=== PATIENT | male | born 1965 | race Caucasian/White ===

== ENCOUNTER 2017-01-30 01:04 | Emergency (ER) | payer SELFPAY ==
[~2017-01-30] VITALS: Ht 182.9 cm; Wt 100.0 kg
[2017-01-30 01:07] VITALS: Ht 182.9 cm; Wt 100.0 kg
[2017-01-30] MEDS ORDERED: IPRATROPIUM (NEB) 0.5 MG/2.5 ML AMP INH STA (01:49)
[2017-01-30] MEDS ORDERED: METHYLPREDNISOLONE 125 MG INJ IV STA (01:49)
[2017-01-30] MEDS ORDERED: ALBUTEROL 0.5% (NEB) 2.5 MG/0.5 ML AMP INH STA (01:49)
--- NOTE | 2017-01-30 01:49 | ERD ---
ER Documentation Chief Complaint Date/Time DATE: 01/30/17 TIME: 01:47 Chief Complaint sob x 90 min, ran out of inhaler, initial sats low 90's, given HHN, improve HPI This 51-year-old male patient brought in by ambulance for evaluation of asthma exacerbation, patient reports ran out of albuterol 2 days ago, has felt congestion, smokes 10 cigarettes a day. ROS All systems reviewed and are negative except as per history of present illness. Allergies Allergies: Coded Allergies: Penicillins (Verified Allergy, Unknown, 01/30/17) PMhx/Soc History of Surgery: No Anesthesia Reaction: No Hx Neurological Disorder: No Hx Respiratory Disorders: Yes (ASTHMA) Hx Cardiac Disorders: No Hx Psychiatric Problems: No Hx Miscellaneous Medical Probl: No Hx Alcohol Use: No Hx Substance Use: No Hx Tobacco Use: Yes Smoking Status: Current every day smoker Physical Exam Vitals Vital Signs Date Time Temp Pulse Resp B/P Pulse Ox O2 Delivery O2 Flow Rate FiO2 01/30/17 02:17 76 22 97 21 01/30/17 01:07 98.5 99 20 145/96 95 Vitals stable, reviewed, patient satting 95% on room air. Physical Exam Const: Well-nourished well-appearing no acute distress Head: Atraumatic Eyes: Normal Conjunctiva ENT: Neck: Resp: Coarse rhonchi poor air movement Cardio: Regular rate and rhythm, no murmurs Abd: Skin: Back: Ext: Neur: Awake and alert Psych: Normal Mood and Affect Results 24 hrs Current Medications Medications (Trade) Dose Ordered Sig/Kathy Route PRN Reason Start Time Stop Time Status Last Admin Dose Admin Albuterol (Proventil 0.5% (Neb)) 5 mg ONCE STAT INH 01/30/17 01:49 01/30/17 01:58 DC 01/30/17 02:16 Ipratropium [place] (Atrovent 0.02% (Neb)) 0.5 mg ONCE STAT INH 01/30/17 01:49 01/30/17 01:58 DC 01/30/17 02:16 Methylprednisolone Sodium Succinate 125 mg 125 mg ONCE STAT IV 01/30/17 01:49 01/30/17 01:58 DC 01/30/17 02:12 Sodium Chloride (NS) 1,000 ml @ 1,000 mls/hr Q1H ONCE IV 01/30/17 02:00 01/30/17 02:59 DC 01/30/17 02:12 Azithromycin (Zithromax) 500 mg ONCE ONCE PO 01/30/17 04:00 01/30/17 04:01 01/30/17 03:57 Procedures/MDM PROCEDURE: XR Chest. CLINICAL INDICATION: Shortness of breath. TECHNIQUE: PA and lateral chest x-ray. COMPARISON: None. FINDINGS: The cardiomediastinal silhouette is unremarkable. There is no congestive heart failure. There is patchy parenchymal infiltrate in the periphery of the right lung base on the frontal view only, suspicious for an infiltrate. There is no pleural effusion. There is no pneumothorax lower cervical anterior fusion plate is present.. IMPRESSION: Suspected patchy right basilar infiltrate, not well characterized. Otherwise no acute abnormality Electronically viewed and signed by .Raoul Fritz MD, MD on 01/30/2017 02:46 This 51-year-old male patient brought in by ambulance for exacerbation of asthma , patient is out of his albuterol, reports asthma usually controlled with just albuterol, patient reports that he is a smoker 10 cigarettes a day that he is trying to quit. He denies any other known trigger. I have little clinical suspicion for pulmonary embolism or acute DE. Patient received nebulized albuterol in field by paramedics and is already feeling improvement of symptoms. Emergency room course include 125 mg of IV Solu-Medrol, a liter of normal saline, and continuous our nebulized albuterol and Atrovent. Patient received x-ray with documented patchy right basilar infiltrate read by radiologist. Plan to treat for pneumonia and asthma exacerbation with azithromycin 500 mg given here in emergency department prior to discharge, patient will be discharged with 250 daily 4 days. Albuterol MDI, and 4 days of prednisone. I considered risks versus benefits with adding prednisone and will benefit with the use of systemic steroids. Patient is on no maintenance medication. Return to emergency department for worsening of symptoms, shortness of breath, wheezing, fever. Patient is stable with no new complaints during ER course, clinically there is no current evidence to suggest meningitis , sepsis, acute abdomen, acute coronary syndromes, pulmonary embolism or any other emergent condition appearing to require further evaluation or hospitalization. I feel the patient is stable for discharge at this time. I have discussed results, examination findings, the treatment plan with the patient and family present prior to discharge. Indications for emergent reevaluation, side effects of medication were also discussed. All questions were answered. Patient verbalizes understanding and agrees with plan of care. Departure Diagnosis: Primary Impression: Asthma exacerbation Additional Impression: Pneumonia Pneumonia type: due to unspecified organism Laterality: right Lung location : lower lobe of lung Qualified Code: J18.1 - Pneumonia of right lower lobe due to infectious organism Condition: Good Patient Instructions: Asthma, Acute (Adult), Pneumonia (Adult) NETTA FLOWERS Jan 30, 2017 01:48
[2017-01-30] MEDS ORDERED: SOD CHLORIDE 0.9% 1,000 ML IV ONE (02:00)
--- NOTE | 2017-01-30 02:46 | RADRPT ---
PROCEDURE: XR Chest. CLINICAL INDICATION: Shortness of breath. TECHNIQUE: PA and lateral chest x-ray. COMPARISON: None. FINDINGS: The cardiomediastinal silhouette is unremarkable. There is no congestive heart failure. There is patchy parenchymal infiltrate in the periphery of the right lung base on the frontal view only, susp icious for an infiltrate. There is no pleural effusion. There is no pneumothorax lower cervical a nterior fusion plate is present.. IMPRESSION: Suspected patchy right basilar infiltrate, not well characterized. Otherwise no acute abnormality RPTAT: HMVK .Raoul Fritz MD, Date Time Electronically viewed and signed by .Raoul Fritz MD, on 01/30/2017 02:46 .K/
[2017-01-30] MEDS ORDERED: AZITHROMYCIN 250 MG TAB PO ONE (04:00)
[2017-01-30] MEDS ORDERED: AZIT250T6 PO (04:08)
[2017-01-30] MEDS ORDERED: ALBU18HF INHALATION (04:10)
[2017-01-30 04:27] VITALS: RESP 18
== END 2017-01-30 04:31 | disposition home or self-care (01) ==
LOC: FTE 01:04
DX: J45.901 Unspecified asthma with (acute) exacerbation (principal); J18.1 Lobar pneumonia, unspecified organism; F17.210 Nicotine dependence, cigarettes, uncomplicated
CPT/HCPCS: 71020; 87400; 94644; 94664; 96374; 99284; J2930; J7030

== ENCOUNTER 2017-07-15 15:49 | Emergency (ER) | END 2017-07-15 18:34 | disposition home or self-care (01) ==